=== PATIENT | female | born 1980 | race Caucasian/White ===

== ENCOUNTER → 2017-07-23 | Outpatient (CLI) | payer OTHER | END | disposition home or self-care (01) | LOC: KCIC MAMMO 12:00 | DX: Z12.31 Encounter for screening mammogram for malignant neoplasm of breast (principal); R92.1 Mammographic calcification found on diagnostic imaging of breast; Z15.09 Genetic susceptibility to other malignant neoplasm; Z80.3 Family history of malignant neoplasm of breast | CPT/HCPCS: 77067 ==

== ENCOUNTER → 2017-08-02 | Outpatient (CLI) | payer OTHER | END | disposition home or self-care (01) | LOC: KCIC MAMMO 07:45 | DX: R92.8 Other abnormal and inconclusive findings on diagnostic imaging of breast (principal); N64.89 Other specified disorders of breast | CPT/HCPCS: 76641; 77065 ==

== ENCOUNTER → 2018-02-04 | Outpatient (CLI) | payer OTHER ==
[2014-06-07 11:52] VITALS: BP 144/72
[~2018-02-04] MED LIST: ALPR0.25 PO; CHOL400C PO; FAMO-63 PO; GLUC100018 PO; MULT-245 PO; OMEG1CAP27 PO; Relafen PO; TIZA4CAP3 PO; ZOLP10TA PO; [UNRECOGNIZED DRUG - REMARK]
--- NOTE | 2018-02-04 09:44 | KCIC ---
EXAM: Right breast diagnostic mammogram; right breast sonogram. HISTORY: 37-year-old female presents for evaluation of nodularity within the right breast demonstrated on a mammogram and sonogram dated 08/02/2017. TECHNIQUE: Full-field digital craniocaudal and mediolateral oblique views of the right breast are obtained for evaluation. Sonographic imaging of the right breast including all 4 quadrants and the retroareolar region was performed. COMPARISON: 08/02/2017 and 07/23/2017 BREAST PARENCHYMAL DENSITY: Level B - Scattered fibroglandular densities. FINDINGS: There is no new suspicious mass, microcalcification or region of architectural distortion. There are few benign calcifications. Sonographic imaging of the right breast demonstrates a stable complicated cyst or cluster of cysts at the 5:00 position 4 cm from the nipple measuring 3.5 mm. There are several additional tiny cysts or benign fibrocystic lesions. There is no new suspicious sonographic finding. IMPRESSION: 1. No new suspicious mammographic finding. 2. Stable complicated cyst or cluster of cysts at the 5:00 position and additional tiny cysts or benign fibrous cystic lesions within the right breast. There is no suspicious sonographic finding. 3. BI-RADS Category 2: Benign finding(s). RECOMMENDATION: Bilateral mammography in 5-6 months is recommended to correspond with the previously established bilateral mammography interval. If your mammogram demonstrates that you have dense breast tissue, which could hide abnormalities, and if you have other risk factors for breast cancer that have been identified, you might benefit from supplemental screening tests that may be suggested by your ordering physician. Dense breast tissue, in and of itself, is a relatively common condition. This information is not provided to cause undue concern, but rather to raise your awareness and to promote discussion with your physician regarding the presence of other risk factors, in addition to dense breast tissue. A report of your mammography results will be sent to you and your physician. You should contact your physician if you have any questions or concerns regarding this report. Mammography is a sensitive method for finding small breast cancers, but it does not detect them all and is not a substitute for careful clinical examination. A negative mammogram does not negate a clinically suspicious finding and should not result in delay in biopsying a clinically suspicious abnormality. PQRS compliance statement - Patient information was entered into a reminder system with a target due date for the next mammogram. "Our facility is accredited by the [employer] Mammography Program." Electronically signed by: Sophie Harrington MD (02/04/2018 9:40 AM) [id number]
== END | disposition home or self-care (01) ==
LOC: KCIC MAMMO 07:58
PROVIDERS: ATTEND Family Medicine
DX: N63.14 Unspecified lump in the right breast, lower inner quadrant (principal)
CPT/HCPCS: 76641; 77065

== ENCOUNTER → 2020-03-08 | Outpatient (CLI) | payer OTHER ==
[2014-06-07 11:52] VITALS: BP 144/72
--- NOTE | 2020-03-08 17:07 | RAD ---
Examination: Limited right breast ultrasound. INDICATION: Screening recall for developing circumscribed nodule in the 3:00 position right breast mid depth. COMPARISON: Bilateral screening mammogram of 02/29/2020, right diagnostic mammogram 02/04/2018, right diagnostic mammogram 08/02/2017 and bilateral screening mammogram 07/23/2017 FINDINGS: Targeted ultrasound of the medial right breast at the 3:00 position 5 7 m from the nipple identified an oval, parallel orientation circumscribed 1 cm nodule with low level linear internal echoes that could represent a fat lobule or fibroadenoma. It is sonographically benign. No additional sonographic findings in the medial right breast are identified. This likely does correlate with the mammographic finding recalled from screening which is present in the setting of a nodular parenchymal pattern in the right breast. IMPRESSION: Benign findings in the medial right breast. No evidence of malignancy. Recommend return to routine screening next due in one year. BI-RADS Category 2 Benign Patient entered into a reminder system with target due date for next mammogram.
== END ==
LOC: US 14:25
PROVIDERS: ATTEND Family Medicine
DX: R92.8 Other abnormal and inconclusive findings on diagnostic imaging of breast (principal); N63.12 Unspecified lump in the right breast, upper inner quadrant
CPT/HCPCS: 76641

== ENCOUNTER → 2020-07-28 | Outpatient (CLI) | payer OTHER ==
[2014-06-07 11:52] VITALS: BP 144/72
[2020-07-28 11:12] LABS: BASO % 1 % (0-3); EOS % 1 % (0-3); HEMATOCRIT 37.9 % (36.0-47.0); HEMOGLOBIN 12.8 g/dL (12.0-15.5); LYMPH # 1.3 x10^3/uL (1.0-4.8); LYMPH % 22 % (24-48); MEAN CORPUSCULAR HEMOGLOBIN 31 pg (25-35); MEAN CORPUSCULAR HGB CONC 34 g/dL (31-37); MEAN CORPUSCULAR VOLUME 92 fL (79-100); MONO # 0.7 x10^3/uL (0.0-1.1); MONO % 11 % (0-9); NEUT # 3.9 x10^3/uL (1.8-7.7); NEUT % 66 % (31-73); PLATELET COUNT 279 x10^3/uL (140-400); RED CELL DISTRIBUTION WIDTH 13.4 % (11.5-14.5); WHITE BLOOD COUNT 5.9 x10^3/uL (4.0-11.0)
[2020-07-28 11:46] LABS: FREE T4 0.83 ng/dL (0.76-1.46); THYROID STIM HORMONE (TSH) 1.13 uIU/mL (0.358-3.74)
[2020-07-28 11:56] LABS: ALBUMIN/GLOBULIN RATIO 1.2 (1.0-1.7); ALK PHOS 58 U/L (46-116); ALT (SGPT) 29 U/L (14-59); ANION GAP 9 (6-14); AST (SGOT) 20 U/L (15-37); BLOOD UREA NITROGEN 9 mg/dL (7-20); BUN/CREATININE RATIO 13 (6-20); CALCIUM 8.8 mg/dL (8.5-10.1); CARBON DIOXIDE 27 mmol/L (21-32); CHLORIDE 100 mmol/L (98-107); CHOLESTEROL 228 mg/dL (0-200); CREATININE 0.7 mg/dL (0.6-1.0); GFR 92.2; GLUCOSE 95 mg/dL (70-99); POTASSIUM 3.8 mmol/L (3.5-5.1); SODIUM 136 mmol/L (136-145); TOTAL BILIRUBIN 0.3 mg/dL (0.2-1.0); TOTAL PROTEIN 7.4 g/dL (6.4-8.2); TRIGLYCERIDES 36 mg/dL (0-150); VLDLC 7 mg/dL (0-40)
[2020-07-28 12:22] LABS: CHOLESTEROL/HDL RATIO 1.3; HDLC 174 mg/dL (40-60); LDLC 47 mg/dL (0-100)
[2020-07-28 14:04] LABS: C-REACTIVE PROTEIN < 0.5 mg/L (0-3.3)
== END ==
LOC: LAB 10:10
PROVIDERS: ATTEND Family Medicine
DX: Z00.00 Encounter for general adult medical examination without abnormal findings (principal); Z11.3 Encounter for screening for infections with a predominantly sexual mode of transmission; E55.9 Vitamin D deficiency, unspecified; R53.83 Other fatigue
CPT/HCPCS: 36415; 80053; 80061; 82306; 84439; 84443; 84480; 85025; 85651; 86140; 86703

== ENCOUNTER → 2021-03-14 | Outpatient (CLI) | payer OTHER ==
[2014-06-07 11:52] VITALS: BP 144/72
--- NOTE | 2021-03-14 17:42 | RAD ---
Bilateral digital screening 2-D and 3-D (digital breast tomosynthesis) mammogram: Reason for examination: Routine screening. Comparison: Mammograms from 02/29/2020 and the 07/16/1717. Right breast ultrasound from 03/08/2020. Interpretation was made with the benefit of CAD. FINDINGS: Breast density: Category B. There are scattered areas of fibroglandular density. No suspicious breast mass, malignant appearing calcifications, or architectural distortion is seen. T here are small oval circumscribed masses in both breasts. These are consistent with benign findings, likely small cysts or possibly fibroadenomas. The largest is in the 3:00 central right breast and has not increased in size. IMPRESSION: No evidence of malignancy. Assessment: BI-RADS 2. Benign findings. Recommendation: Routine screening mammograms. The patient will receive a letter with the results in the mail. Patient information will be entered i nto the mammography reminder system with a target recall date for the next mammogram. A reminder juan jose er will be generated. Electronically signed by: Caty Carlin MD (03/14/2021 5:39 PM) [id number]
== END ==
LOC: MAMMO 13:24
PROVIDERS: ATTEND Family Medicine
DX: Z12.31 Encounter for screening mammogram for malignant neoplasm of breast (principal)
CPT/HCPCS: 77063; 77067